=== PATIENT | female | born 1965 | race Caucasian/White ===

== ENCOUNTER 2023-01-31 21:37 | Emergency (ER) | payer OTHER ==
--- NOTE | 2023-01-31 22:11 | ED Physician Documentation ---
PD HPI ABD PAIN - Stated complaint Stated Complaint: DISCOMFORT - Chief complaint Chief Complaint: Abd Pain - History obtained from History obtained from: Patient - Additional information Additional information: HPI from patient. Patient complains of episodic lower abdominal discomfort which she describes as bloating sensation. She denies omid abdominal pain. There have been no inciting, ameliorating, nor exacerbating factors. She describes early satiety. She says she feels as though she has a bowel obstruction, although she has never had a bowel obstruction before and she does not note any decrease in frequency of her bowel movements. Because of the bloating sensation and the sensation of obstruction, she is intermittently been using laxatives with varying degrees of improvement.She denies fever, denies nausea/vomiting. She has not been evaluated before for the symptoms.She has no abdominal surgical history. Review of Systems Constitutional: denies: Fever Cardiac: reports: Reviewed and negative Respiratory: reports: Reviewed and negative GI: reports: Abdominal Swelling. denies: Nausea, Vomiting, Constipation, Diarrhea, Hematemesis, Bloody / black stool : denies: Dysuria, Frequency PD PAST MEDICAL HISTORY - Past Medical History Past Medical History: No - Past Surgical History Past Surgical History: No - Present Medications Home Medications: Ambulatory Orders Medication Instructions Recorded Confirmed No Known Home Medications 01/31/23 01/31/23 - Allergies Allergies/Adverse Reactions: Allergies Allergy/AdvReac Type Severity Reaction Status Date / Time No Known Drug Allergies Allergy Verified 01/31/23 21:57 PD ED PE NORMAL - Vitals Vital signs reviewed: Yes - General General: Alert and oriented X 3, No acute distress, Well developed/nourished - HEENT HEENT: Moist mucous membranes - Cardiac Cardiac: RRR, No murmur - Respiratory Respiratory: No respiratory distress, Clear bilaterally - Abdomen Abdomen: Normal bowel sounds, Soft, Non tender, Non distended - Back Back: No CVA TTP - Derm Derm: Normal color, Warm and dry Results - Vitals Vitals: Oxygen O2 Source Room air - Labs Labs: Laboratory Tests 01/31/23 01/31/23 01/31/23 22:10 22:10 22:57 WBC 5.1 RBC 4.75 Hgb 14.8 Hct 43.8 MCV 92.2 MCH 31.2 H MCHC 33.8 RDW 12.1 Plt Count 293 MPV 10.2 Neut # (Auto) 2.5 Lymph # (Auto) 2.0 [place] # (Auto) 0.4 Eos # (Auto) 0.1 Baso # (Auto) 0.1 Absolute Nucleated RBC 0.00 Nucleated RBC % 0.0 Sodium 139 Potassium 3.0 L Chloride 101 Carbon Dioxide 24 Anion Gap 14.0 H BUN 9 Creatinine 0.9 Estimated GFR (MDRD) 64 L Glucose 119 H Calcium 9.3 Total Bilirubin 1.1 H AST 24 ALT 12 Alkaline Phosphatase 38 L Total Protein 7.3 Albumin 5.1 Globulin 2.2 Albumin/Globulin Ratio 2.3 H Lipase 51 Urine Color YELLOW Urine Clarity CLEAR Urine pH 5.0 Ur Specific [place] 1.010 Urine Protein NEGATIVE Urine Glucose (UA) NEGATIVE Urine Ketones NEGATIVE Urine Occult Blood TRACE-INTA Urine Nitrite NEGATIVE Urine Bilirubin NEGATIVE Urine Urobilinogen 0.2 (NORMAL) Ur Leukocyte Esterase NEGATIVE Ur Microscopic Review NOT INDICATED Urine Culture Comments NOT INDICATED - Rads (name of study) CT A/P with IV and PO contrast Relevant Findings:: Prelim report reviewed, See rad report PD Medical Decision Making - ED course Complexity details: reviewed results, re-evaluated patient, considered differential, d/w patient ED course: Tests ordered and results reviewed by me: CBC, ER abdominal panel, urinalysis, CT of the abdomen pelvis with oral and intravenous contrast. No concerning or diagnostic findings on the blood tests; incidental note is made of mild hypokalemia (potassium 3.0) for which she is given 25 meq of potassium bicarbonate orally. Normal urinalysis. No explanatory findings on the CT scan; radiologist's interpretation includes 2.4 cm right ovarian cyst, as well as "a few parapelvic left renal cysts". These findings would not account for patient's symptoms (the ovarian cyst is small with no evidence of rupture such as free fluid). At this time, the cause of the patient's symptoms are not apparent based on these test. I discussed the results with the patient, recommended that she contact her primary care provider for follow-up/reevaluation. Return precautions are also reviewed. Departure - Departure Disposition: 01 Home, Self Care Clinical Impression: Abdominal pain Qualifiers: Abdominal location: generalized Qualified Code(s): R10.84 - Generalized abdominal pain Condition: Good Instructions: ED Abdominal Pain Female Non-Specific Abdominal Pain, ED Potassium Deficiency Follow-Up: LAN TAYLOR PA-C [Primary Care Provider] - Comments: There were no concerning or diagnostic findings on tonight's tests. The CT scan shows a small, right-sided ovarian cyst. I strongly suspect this is an incidental finding; the location and the small size of the cyst would not account for your symptoms. You should mention the finding the ovarian cyst your primary care provider, as they might recommend further testing on this. Another incidental finding was a low potassium level. You were given an oral dose of potassium in the emergency department, but this is also an abnormality you should mention to your primary care provider, as they might want to repeat this blood test in the coming weeks to ensure that it is normalized. I recommend that you take an [id number] acid blocking medication such as Prilosec or Nexium, once per day for 2 weeks. Your symptoms could possibly due to a stomach problem such as a shallow ulcer, and an acid blocking medication can often help with those symptoms. Ulcer and similar diagnoses (such as gastritis) will not show up on the tests performed tonight in emergency department. Forms: Activity restrictions Discharge Date/Time: 02/01/23 02:45
[2023-01-31 22:15] LABS: BASOPHILS # (AUTO) 0.1 10^3/uL (0.0-0.1); BASOPHILS % (AUTO) 1.2 %; EOSINOPHILS # (AUTO) 0.1 10^3/uL (0.0-0.7); EOSINOPHILS % (AUTO) 1.8 %; HCT - HEMATOCRIT 43.8 % (37.0-47.0); HGB - HEMOGLOBIN 14.8 g/dL (12.0-16.0); MEAN CORPUSCULAR HEMOGLOBIN 31.2 pg (27.0-31.0); MEAN CORPUSCULAR HGB CONC 33.8 g/dL (32.0-36.0); MEAN CORPUSCULAR VOLUME 92.2 fL (81.0-99.0); MEAN PLATELET VOLUME 10.2 fL (7.9-10.8); MONOCYTES # (AUTO) 0.4 10^3/uL (0.0-1.0); MONOCYTES % (AUTO) 7.5 %; NEUTROPHILS # (AUTO) 2.5 10^3/uL (1.5-6.6); NEUTROPHILS % (AUTO) 49.3 %; PLT - PLATELET COUNT 293 10^3/uL (130-450); RED BLOOD COUNT 4.75 10^6/uL (4.20-5.40); RED CELL DISTRIBUTION WIDTH 12.1 % (12.0-15.0); WHITE BLOOD COUNT 5.1 x10^3/uL (4.8-10.8)
[2023-01-31 22:28] LABS: ALBUMIN 5.1 g/dL (3.2-5.5); ALBUMIN/GLOBULIN RATIO 2.3 (1.0-2.2); BILIRUBIN,TOTAL 1.1 mg/dL (0.2-1.0); CALCIUM 9.3 mg/dL (8.5-10.3); CREATININE 0.9 mg/dL (0.4-1.0); TOTAL PROTEIN 7.3 g/dL (6.7-8.2)
[2023-01-31] MEDS ORDERED: iohexoL-300 100 ML VIAL ONE (23:05)
[2023-01-31] MEDS ORDERED: DIATR MEGLU/DIATRIZOATE SODIUM 120 ML BOTTLE ONE (23:06)
[2023-01-31 23:07] LABS: BILIRUBIN,URINE NEGATIVE (NEGATIVE); GLUCOSE, URINE (UA) NEGATIVE (NEGATIVE); KETONES,URINE (UA) NEGATIVE (NEGATIVE); LEUKOCYTE ESTERASE, URINE NEGATIVE (NEGATIVE); NITRITE,URINE NEGATIVE (NEGATIVE); OCCULT BLOOD,URINE TRACE-INTA (NEGATIVE); PROTEIN,URINE NEGATIVE (NEGATIVE); UROBILINOGEN,URINE 0.2 (NORMAL) E.U./dL (NORMAL)
[2023-01-31 23:08] LABS: CLARITY,URINE CLEAR (CLEAR)
[2023-02-01] MEDS: iohexoL-300 100 ML VIAL IVP ONE (01:01)
[2023-02-01] MEDS: DIATRIZOATE MEGLU/DIATRIZO SOD 30 ML BOTTLE PO ONE (01:02)
--- NOTE | 2023-02-01 01:19 | CT Report ---
PROCEDURE: ABDOMEN/PELVIS W INDICATIONS: abdominal pain, bloating CONTRAST: Omni 300 100ml TECHNIQUE: After the administration of oral and intravenous contrast, 5 mm thick sections acquired from the diap hragms to the symphysis. 5 mm thick coronal and sagittal reformats were acquired. For radiation dos e reduction, the following was used: automated exposure control, adjustment of mA and/or kV accordin g to patient size. COMPARISON: None. FINDINGS: Image quality: Excellent. Lung bases: Unremarkable. Heart: Heart is normal in size. ABDOMEN: Liver:There is mild focal fatty infiltration in the anterior left hepatic lobe. Gallbladder: Within normal limits without calcified gallstones. Biliary ducts: No biliary ductal dilatation. Pancreas: Unremarkable. Spleen: Normal in size. Adrenal Glands: No adrenal nodules. Kidneys and Ureters: No hydronephrosis. There are a few parapelvic left renal cysts. Stomach and Bowel: Stomach, small bowel loops, and colon are normal in caliber and wall thickness. N o pericecal inflammatory changes to suggest appendicitis. Peritoneum: No abnormal intraperitoneal fluid. No free air. Ventral Wall: No hernia. Abdominal Nodes: No retroperitoneal or mesenteric adenopathy by size criteria. Vessels: Aorta and inferior vena cava are normal in size. PELVIS: Pelvic Organs:There is a right ovarian cyst measuring up to 2.4 cm. Bladder: Unremarkable. Pelvic Nodes: No enlarged lymph nodes. Miscellaneous: No inguinal hernias. Bones: Visualized osseous structures demonstrate no suspicious lesions. IMPRESSION: 1. No definite acute intra-abdominal abnormality. Specifically, no evidence of bowel obstruction. Reviewed by: Epi Arizmendi MD on 02/01/2023 1:18 AM PDT Approved by: Epi Arizmendi MD on 02/01/2023 1:18 AM PDT Station ID: [id number]
[2023-02-01] MEDS: PANTOPRAZOLE 40 MG TABLET PO STA (02:40)
[2023-02-01] MEDS: POTASSIUM BICARB 25 MEQ TABLET PO STA (02:40)
[2023-02-01 02:50] VITALS: BP 137/88
== END 2023-02-01 02:45 | disposition home or self-care (01) ==
LOC: ED 21:37
DX: R10.84 Generalized abdominal pain (principal)
CPT/HCPCS: 36415; 80053; 81001; 81003; 83690; 85025; 87086; 99284